=== PATIENT | female | born 1980 | race Caucasian/White ===

== ENCOUNTER 2018-12-29 21:30 | Emergency (ER) | payer OTHER ==
[~2018-12-29] VITALS: Ht 160 cm; Wt 68.0 kg
== END 2018-12-29 23:21 | disposition home or self-care (01) ==
LOC: ER 21:30
DX: K52.9 Noninfective gastroenteritis and colitis, unspecified (principal)

== ENCOUNTER 2019-04-10 09:56 | Emergency (ER) | payer OTHER ==
[~2019-04-10] VITALS: Ht 160 cm; Wt 68.0 kg
== END 2019-04-10 14:11 | disposition home or self-care (01) ==
LOC: ER 09:56
DX: K29.00 Acute gastritis without bleeding (principal); R10.84 Generalized abdominal pain

== ENCOUNTER 2021-05-06 09:36 | Outpatient (CLI) | payer OTHER | END 2021-05-06 09:53 | disposition home or self-care (01) | LOC: MAMO-SONO 09:36 | PROVIDERS: ATTEND Obstetrics & Gynecology | DX: N60.01 Solitary cyst of right breast (principal); Z12.31 Encounter for screening mammogram for malignant neoplasm of breast; N64.4 Mastodynia ==